=== PATIENT | female | born 1975 | race Caucasian/White ===

== ENCOUNTER 2024-09-09 04:05 | Day surgery (SDC) | payer OTHER ==
[2024-09-07 12:48] VITALS: BMI 27.1
[2024-09-09 07:29] VITALS: RESP 16
[2024-09-09] MEDS ORDERED: BUPIVACAINE LIPOSOME/PF (EXPAREL) 266 MG/20 ML VIAL ONE (09:07)
[2024-09-09] MEDS ORDERED: LIDOCAINE HCL 2% (20ML MULTI-DOSE VIAL) ONE (09:07)
[2024-09-09] MEDS ORDERED: BUPIVACAINE HCL/PF 0.5% (5MG/ML) 10 ML VIAL ONE (09:07)
[2024-09-09] MEDS ORDERED: PROPOFOL 20 ML ONE ×3 (09:11→10:43)
[2024-09-09] MEDS ORDERED: MIDAZOLAM HCL 2 MG/2 ML SINGLE DOSE VIAL ONE (09:11)
[2024-09-09] MEDS: ceFAZolin SODIUM 1 GM VIAL IVPB ONE (09:25)
[2024-09-09] MEDS ORDERED: KETAMINE HCL 500 MG/10 ML VIAL ONE (09:42)
[2024-09-09] MEDS: LIDOCAINE HCL 2% (50ML VIAL) INF ONE (10:11)
[2024-09-09] MEDS: BUPIVACAINE HCL/PF 0.5% (5 MG/ML) 30 ML VIAL IJ ONE (10:12)
[2024-09-09] MEDS: BUPIVACAINE LIPOSOME/PF (EXPAREL) 266 MG/20 ML VIAL IJ ONE (10:55)
[2024-09-09 12:05] VITALS: BP 139/88; PULSE 73; TEMP 97.4
== END 2024-09-09 13:44 | disposition home or self-care (01) ==
LOC: JASU-SURG 04:05
PROVIDERS: ATTEND Podiatrist
PROC: 0SRQ0JZ Replacement of Left Toe Phalangeal Joint with Synthetic Substitute, Open Approach (ICD-10-PCS; principal; 2024-09-09 08:30)
DX: M20.12 Hallux valgus (acquired), left foot (principal); M20.42 Other hammer toe(s) (acquired), left foot; M12.572 Traumatic arthropathy, left ankle and foot; M67.472 Ganglion, left ankle and foot
CPT/HCPCS: 73630-TC-LT; 76000-TC-FY; 81025; 88305-TC; 94760; C1713